=== PATIENT | male | born 1980 | race Caucasian/White ===

== ENCOUNTER 2020-12-06 20:04 | Emergency (ER) | payer OTHER, SELFPAY ==
[2020-12-06 20:07] VITALS: BP 155/95; PULSE 98; RESP 18; TEMP 36.1; O2SAT 99
--- NOTE | 2020-12-06 20:20 | ED.WOUNDLAC ---
HPI - Wound/Laceration General Chief Complaint: Wound/Laceration Stated Complaint: Left thumb injury Time Seen by Provider: 12/06/20 20:14 History of Present Illness HPI narrative: This patient is a 40 year old male left hand dominant who presents for evaluation of left thumb laceration. He states prior to arrival he accidentally cut his left thumb on a metal broom. He states he applied pressure and he was able to get bleeding to stop. He was concerned that he may need to have stitches because he could see fat coming out. He denies numbness, tingling to finger. He thinks his last tetanus was in 2016. Related Data Home Medications Medication Instructions Recorded Confirmed No Home Medications 12/06/20 12/06/20 Allergies Allergy/AdvReac Type Severity Reaction Status Date / Time codeine Allergy Unknown Verified 12/06/20 20:10 Penicillins Allergy Unknown Verified 12/06/20 20:10 shellfish derived Allergy Swelling Verified 12/06/20 20:10 of Lip/Tongue/Throat Review of Systems Review of Systems: All systems reviewed & are unremarkable except as noted in HPI and below PMFSH Past Medical History Medical History (Updated 12/06/20 @ 21:28 by Liz Dhaliwal MD) Patient denies medical problems Social History Social History (Updated 12/06/20 @ 21:24 by Liz Dhaliwal MD) Smoking status: Never smoker Exam Const: General: no acute distress and alert Orientation/consciousness: patient oriented x3 Eyes: EOM: EOMs intact bilaterally Resp: Effort & Inspection: normal respiratory effort Neuro: General: patient oriented x3 and moves all extremities Extrem: Other: left thumb finger pad with linear laceration 2 cm, FROM Psych: Mental Status: mental status grossly normal Affect: normal affect Course Vital Signs Vital signs: Vital Signs Temperature 96.9 F L 12/06/20 20:07 Pulse Rate 98 12/06/20 20:07 Respiratory Rate 18 12/06/20 20:07 Blood Pressure 155/95 H 12/06/20 20:07 Pulse Oximetry 99 12/06/20 20:07 Temperature 96.9 F L 12/06/20 20:07 Pulse Rate 98 12/06/20 20:07 Respiratory Rate 18 12/06/20 20:07 Blood Pressure 155/95 H 12/06/20 20:07 Pulse Oximetry 99 12/06/20 20:07 Procedures Laceration Laceration 1: Date: 12/06/20 Time: 21:25 Site: other (left thumb laceration) Description: linear Local Anesthetic: bupivacaine 0.25% (digital nerve block) Amount of anesthesia used (mL): 2 Pre-repair: irrigated ====== Skin Level ====== Skin layer closed with: prolene Size (cm): 4-0 Number of sutures: 3 Technique: horizontal mattress ====== Subcutaneous Layer ====== ====== Muscle Layer ====== ====== Tendon Layer ====== Discharge Plan Discharge Clinical Impression: Laceration of left thumb Qualifiers: Encounter type: initial encounter Patient Disposition: Home, Self-Care Condition: Stable Instructions: Care For Your Stitches (ED), Laceration (ED) Additional Instructions: You will need to have your stitches removed in 10-14 days. Watch for signs of an infection. Prescriptions: No Action No Home Medications RF: 0 Follow-up/Referrals: [facility] [Primary Care Provider] -
[2020-12-06] MEDS: TETANUS,DIPHTHERIA,AC PERTUSSIS ADULT (0.5 ML) BOOSTRIX IM (21:05)
== END 2020-12-06 21:41 | disposition home or self-care (01) ==
PROVIDERS: Emergency Provider General Practice
DX: S61.012A Laceration without foreign body of left thumb without damage to nail, initial encounter (principal); Z23 Encounter for immunization; W26.8XXA Contact with other sharp object(s), not elsewhere classified, initial encounter
CPT/HCPCS: 12001; 90471; 90715; 99282